=== PATIENT | male | born 1980 | race Caucasian/White ===

== ENCOUNTER → 2016-09-10 | Outpatient (CLI) | payer OTHER ==
--- NOTE | 2016-09-10 15:18 | DIAGNOSTIC IMAGING REPORT ---
LEFT LOWER EXTREMITY WITHOUT CT DOSE: 243.57 mGy.cm HISTORY: Pain LT ANKLE PAIN R/O TALUS FRACTURE TECHNIQUE: Multiaxial CT images of the left ankle were performed and reformatted in the sagittal and coronal plane without the use of contrast. COMPARISON: None. FINDINGS: Findings consistent with screw fixation of the medial malleolus. There is a plate and multiple screws traversing the distal fibula. Alignment overall is anatomic. There is specifically is no acute abnormality of the talus. There are degenerative changes of the articular services of the distal tibia. There are several small ossific fragments medially adjacent to the distal fibula and distal talus this is well-corticated. Several additional fragments are identified posterior to the distal tibia. These presumably represent tiny avulsions and appear to be pre-existing and/or nonacute. The largest immediately lateral to the distal tibia measures 4 mm. It is immediately adjacent to the lateral articular surface of the talar dome. Subtalar joint appears to be intact. There is no evidence for bony ankylosis or correlation. IMPRESSION: 1. Findings consistent with open reduction internal fixation of the medial malleolus as well as distal fibula. 2. Several cystic fragments adjacent to the posterior aspect of the distal tibia as well as a 4 mm fragment between the distal fibula and medial talar dome. 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 3. No evidence for an acute fracture. The above report was generated using voice recognition software. It may contain grammatical, syntax or spelling errors. Electronically signed by: Jovanny Sanchez M.D. 09/10/2016 3:17 PM Dictated Date/Time: 09/10/2016 3:12 PM
== END | disposition home or self-care (01) ==
LOC: C.CTS 14:46
PROVIDERS: ATTEND Orthopaedic Surgery
DX: M25.572 Pain in left ankle and joints of left foot (principal); Z87.81 Personal history of (healed) traumatic fracture

== ENCOUNTER → 2016-09-11 | Outpatient (CLI) | payer OTHER ==
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
== END | disposition home or self-care (01) ==
LOC: C.MRIBC 16:06
PROVIDERS: ATTEND Orthopaedic Surgery
DX: M25.561 Pain in right knee (principal)